=== PATIENT | female | born 1975 | race Caucasian/White ===

== ENCOUNTER 2019-10-26 08:49 | Outpatient (CLI) | payer OTHER, SELFPAY ==
--- NOTE | ~2019-10-26 | MM_ITS ---
EXAMINATION: MM screening kin BI w jessenia HISTORY: Screening mammogram TECHNIQUE: Craniocaudal and mediolateral oblique 3-D tomosynthesis images were obtained and synthetic 2-D images were generated. CAD analysis was submitted and interpreted. COMPARISON: Comparison to multiple prior studies sequentially, with oldest reviewed study dated 10/17. BREAST PARENCHYMAL COMPOSITION: There are scattered areas of fibroglandular density. FINDINGS: There is no evidence of suspicious mass, calcification, or architectural distortion to sugg est malignancy in either breast. There has been no suspicious interval change. IMPRESSION: 1. No mammographic evidence of malignancy. 2. Recommend routine screening mammography in one year. BI-RADS Category 1: Negative Reviewed, dictated and finalized at location A.
== END 2019-10-26 08:50 | disposition home or self-care (01) ==
LOC: ANHIMG 08:56
PROVIDERS: Visit Provider Obstetrics & Gynecology
DX: Z12.31 Encounter for screening mammogram for malignant neoplasm of breast (principal)
CPT/HCPCS: 77063; 77067

== ENCOUNTER 2020-10-27 09:14 | Outpatient (CLI) | payer OTHER, SELFPAY ==
--- NOTE | ~2020-10-27 | MM_ITS ---
EXAMINATION: MM screening kin BI w jessenia HISTORY: Screening TECHNIQUE: Craniocaudal and mediolateral oblique 3-D tomosynthesis images were obtained and synthetic 2-D images were generated. CAD analysis was submitted and interpreted. COMPARISON: Comparison to multiple prior studies sequentially, with oldest reviewed study dated 09/29. BREAST PARENCHYMAL COMPOSITION: There are scattered areas of fibroglandular density. FINDINGS: There is no evidence of suspicious mass, calcification, or architectural distortion to sugg est malignancy in either breast. There has been no suspicious interval change. IMPRESSION: 1. No mammographic evidence of malignancy. 2. Recommend routine screening mammography in one year. BI-RADS Category 1: Negative Reviewed, dictated and finalized at location A.
== END 2020-10-27 09:15 | disposition home or self-care (01) ==
LOC: ANHIMG 09:17
PROVIDERS: Visit Provider Obstetrics & Gynecology
DX: Z12.31 Encounter for screening mammogram for malignant neoplasm of breast (principal)
CPT/HCPCS: 77063; 77067

== ENCOUNTER 2021-01-16 09:03 | Outpatient (CLI) | payer OTHER, SELFPAY ==
--- NOTE | ~2021-01-16 | DEXA_ITS ---
Bone Density Report Name: Tiana Shi Age: 45 Sex: Female Ethnicity: White Date of : 1975 Indication: height loss; hysterectomy; Referring Provider: Emile Camarillo Study: Bone densitometry was performed. Exam Date: January 16, 2021 Accession number: [id number] Bone Density: Region BMD T-score Z-score Classification AP Spine (L3, L4) 1.286 1.7 2.3 Normal World Health Organization criteria for BMD impression classify patients as: Normal (T-score at or above -1.0), Osteopenia (T-score between -1.0 and -2.5), or Osteoporosis (T-score at or below -2.5). Previous Exams: Region Exam Age BMD T-score BMD Change BMD Change Date g/cm2 vs Baseline vs Previous AP Spine(L3, L4) 01/16/2021 45 1.286 1.7 0.023(1.8%) 0.023(1.8%) 10/17/2016 40 1.263 1.5 *Denotes significance at 95% confidence level, LSC for AP Spine = 0.022 g/cm2 Clinical Information Provided by Patient: Has used the following medications: Vitamin D, Calcium Has the following medical conditions: Hysterectomy Patient maximum height was 66 Onset of menses at age 9 Premenopausal Number of children 1 Impression: The patient's bone mass is within expected range for age, gender and ethnicity. No significant bone loss was observed. Discussion: BONE DENSITY IS WITHIN EXPECTED LIMITS FOR AGE, SEX AND RACE. Bone density is within expected limits for age, sex and race at all sites measured. The patient should follow a healthful lifestyle (good nutrition with adequate calcium and vitamin D, and appropriate weight-bearing exercise). Follow-Up: Consider repeating this study in 5 years or sooner if there is some new clinical indication. Reported by: BONNIE on 01/16/2021 9:21:00 AM. Reviewed, dictated and finalized at location ACosta ZELAYA
== END 2021-01-16 09:04 | disposition home or self-care (01) ==
LOC: ANHIMG 09:07
PROVIDERS: Visit Provider Obstetrics & Gynecology
DX: Z13.820 Encounter for screening for osteoporosis (principal)
CPT/HCPCS: 77080

== ENCOUNTER 2021-11-06 08:48 | Outpatient (CLI) | payer OTHER, SELFPAY ==
--- NOTE | ~2021-11-06 | MM_ITS ---
EXAMINATION: MM screening kin BI w jessenia HISTORY: Screening TECHNIQUE: Craniocaudal and mediolateral oblique 3-D tomosynthesis images were obtained and synthetic 2-D images were generated. CAD analysis was submitted and interpreted. COMPARISON: Comparison to multiple prior studies sequentially, with oldest reviewed study dated 09/29. BREAST PARENCHYMAL COMPOSITION: There are scattered areas of fibroglandular density. FINDINGS: There is no evidence of suspicious mass, calcification, or architectural distortion to sugg est malignancy in either breast. There has been no suspicious interval change. IMPRESSION: 1. No mammographic evidence of malignancy. 2. Recommend routine screening mammography in one year. BI-RADS Category 1: Negative Reviewed, dictated and finalized at location A.
== END 2021-11-06 08:49 | disposition home or self-care (01) ==
LOC: ANHIMG 08:54
PROVIDERS: Visit Provider Obstetrics & Gynecology
DX: Z12.31 Encounter for screening mammogram for malignant neoplasm of breast (principal)
CPT/HCPCS: 77063; 77067

== ENCOUNTER → 2022-04-12 15:34 | Outpatient (CLI) | payer OTHER, SELFPAY ==
--- NOTE | ~2022-04-12 | MR_ITS ---
EXAMINATION: MR brain/brain stem wo con DATE: 04/12/2022 16:11 INDICATION: Memory loss. TECHNIQUE: Magnetic resonance imaging (MRI) of the brain and brainstem was performed without intraven ous contrast. COMPARISON: None. FINDINGS: There are 2 punctate foci of increased T2-weighted signal intensity in the cerebral white m atter, which is normal for the patient's age. There is no intracranial hemorrhage, acute infarction, or abnormal intracranial mass lesion. The ventricles are normal in size. The paranasal sinuses are cl ear. The orbits are normal. There is a trace right mastoid effusion. IMPRESSION: 1. Normal brain. Reviewed, dictated and finalized at location A. INE SHOP APPRENTICE IMPRESSION: 1. Normal brain.
== END ==
DX: R41.3 Other amnesia (principal)
CPT/HCPCS: 70551

== ENCOUNTER 2022-10-11 09:00 | Outpatient (RCR) | payer OTHER, SELFPAY ==
--- NOTE | 2022-09-13 13:02 | PTOPEVAL1 ---
Assessment and note entered by Jennifer Mercado, PT Evaluation Information Assessment Status Evaluation Diagnosis chronic pain Subjective Information Patient referred to physical therapy due to chronic pain. Patient is very interested in aquatic therapy. Patient reports her back and neck are her main problems currently. Patient reports numbness in bilateral upper extremities. Patient reports neck pain is currently 3/10, back currently rated as 5/10, states that MD believes her pain may be autoimmune related or fibromyalgia . 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 Reported Pain Level Pain Score 3,5: Self Report Additional Pain Score Comments patient reports she is unable to make her pain go away with ice or heat Assessment PT Clinical Summary Patient is 46 year old female referred to physical therapy due to back and neck pain. Patient has chronic pain which moves around and limits her ability to perform chores at home and prolonged mobility in the community. Patient presents with decreased lumbar range of motion, decrease hip and core strength, and pain with all mobility. Patient is a good candidate for aquatic therapy in order to perform strengthening with buoyancy of pool to improve tolerance. Recommending skilled physical therapy 1-2x/wk for 4 weeks to reduce pain, improve endurance, and improve core/lower extremity strength in order to improve mobility in home and community Plan of Care Interventions Aquatic Therapy,Electrical Stimulation,Gait Training,Hot Pack/Cold Pack,Manual Therapy,Neuro Re-education,Patient/Caregiver Education,Therapeutic Activities,Therapeutic Exercise Other Interventions cupping, taping, iastm PT Services Indicated Yes Treatment Frequency and 1-2x/wk for 4 weeks Duration These treatments will address the objective and functional deficits as defined above. The patient will be advanced safely and appropriately in order for the patient to progress towards his/her prior level of function. Additional exercises will be introduced and as well as a comprehensive home exercise program upon discharge, if needed, ?to ensure carryover of functional gains achieved in the clinic. This treatment plan has been reviewed and agreement upon by the patient.
--- NOTE | 2022-10-11 09:44 | PTOPDC ---
Assessment and note entered by Jennifer Mercado, PT Evaluation Information Assessment Status Discharge Diagnosis chronic pain Subjective Information Patient states that following PT she will find a new body part hurting. For example when scapular strengthening occurs her neck, TMJ, or shoulder will begin hurting. Patient reports she feels stronger and will be going to an amusement park with her family Reported Pain Level Pain Score 4,5: Self Report Additional Pain Score Comments patient pain moves around frequently, currently complaining of R TMJ pain. Patient has mouth guard and has been using that as well as heat. Patient also complaining of R shoulder pain since performing scapular retraction. Patient will be seeing neurologist in November. Assessment PT Clinical Summary PT goals partially met at this time. Patient has progressed with lower extremity strength at this time, patient is independent with home exercises. Patients pain continues to flare up following therapy sessions and moves to different body parts . Currently patient is experiencing pain in neck, R shoulder, L TMJ, low back. Patient does experience relief in pain with heat and gentle range of motion to cervical spines. Patient is able to walk increased distances at this time. Patient agrees that she is ready for DC from PT due to pain changing locations frequently and being independent with home exercise program. Educated to notify MD if symptoms worsen and additional therapy is needed Plan of Care PT Services Indicated No
== END 2022-10-11 14:46 | disposition home or self-care (01) ==
LOC: ANHPT 09:00
PROVIDERS: Visit Provider Nurse Practitioner
DX: G89.4 Chronic pain syndrome (principal)
CPT/HCPCS: 97014; 97110; 97113; 97140; 97162; 97530; G0283

== ENCOUNTER 2022-11-09 13:57 | Outpatient (CLI) | payer OTHER, SELFPAY ==
--- NOTE | ~2022-11-09 | MM_ITS ---
EXAMINATION: MM screening kin BI w jessenia HISTORY: Screening mammogram TECHNIQUE: Craniocaudal and mediolateral oblique 3-D tomosynthesis images were obtained and synthetic 2-D images were generated. CAD analysis was submitted and interpreted. COMPARISON: 11/06/2021, 10/27/2020, 10/26/2019 bilateral screening mammogram examinations BREAST PARENCHYMAL COMPOSITION: The breasts are almost entirely fatty. FINDINGS: Stable circumscribed axillary tail and axillary lymph nodes since prior examination. There is no evidence of suspicious mass, calcification, or architectural distortion to suggest malignancy i n either breast. There has been no suspicious interval change. IMPRESSION: 1. No mammographic evidence of malignancy. 2. Recommend routine screening mammography in one year. BI-RADS Category 1: Negative Reviewed, dictated and finalized at location A.
== END 2022-11-09 13:58 | disposition home or self-care (01) ==
LOC: CHSIMG 14:00
PROVIDERS: Visit Provider Obstetrics & Gynecology
DX: Z12.31 Encounter for screening mammogram for malignant neoplasm of breast (principal)
CPT/HCPCS: 77063; 77067

== ENCOUNTER 2023-11-12 09:05 | Outpatient (CLI) | payer OTHER, SELFPAY ==
--- NOTE | ~2023-11-12 | MM_ITS ---
EXAMINATION: MM screening kin BI w jessenia HISTORY: Screening TECHNIQUE: Craniocaudal and mediolateral oblique 3-D tomosynthesis images were obtained and synthetic 2-D images were generated. CAD analysis was submitted and interpreted. COMPARISON: Comparison to multiple prior studies sequentially, with oldest reviewed study dated 10/25. BREAST PARENCHYMAL COMPOSITION: Not dense: There are scattered areas of fibroglandular density. FINDINGS: There is no evidence of suspicious mass, calcification, or architectural distortion to sugg est malignancy in either breast. There has been no suspicious interval change. IMPRESSION: 1. No mammographic evidence of malignancy. 2. Recommend routine screening mammography in one year. BI-RADS Category 1: Negative Reviewed, dictated and finalized at location B.
== END 2023-11-12 09:06 | disposition home or self-care (01) ==
LOC: ANHIMG 09:06
PROVIDERS: Visit Provider Obstetrics & Gynecology
DX: Z12.31 Encounter for screening mammogram for malignant neoplasm of breast (principal)
CPT/HCPCS: 77063; 77067

== ENCOUNTER 2024-05-25 14:53 | Outpatient (CLI) | payer OTHER, SELFPAY ==
--- NOTE | ~2024-05-25 | DEXA_ITS ---
Bone Density Report Name: EDGAR LARA Age: 48 Sex: Female Ethnicity: White Date of : 1975 Indication: postmenopausal; screening for osteoporosis; height loss; prior fracture; hysterectomy; Referring Provider: JEAN-CLAUDE LIEBERMAN Study: Bone densitometry was performed. Exam Date: May 25, 2024 Accession number: [id number] Bone Density: Region BMD T-score Z-score Classification AP Spine(L1-L4) 1.192 1.3 2.1 Normal World Health Organization criteria for BMD impression classify patients as: Normal (T-score at or above -1.0), Osteopenia (T-score between -1.0 and -2.5), or Osteoporosis (T-score at or below -2.5). Clinical Information Provided by Patient: Has had a low trauma fracture Has used the following medications: Vitamin D, Calcium Has the following medical conditions: Hysterectomy Patient maximum height was 66.0 Menopause Age: 41 No regular weight bearing exercise Drinks caffeinated beverages Onset of menses at age 9 Number of children 1 Impression: The patient has normal bone mass. The patient has risk factors, including: previous fracture. Discussion: LOW RISK OF FRACTURE; BONE DENSITY IS WELL ABOVE THE MINIMUM DESIRABLE LEVEL AND ABOVE AVERAGE FOR AGE AND SEX AT ALL SKELETAL SITES TESTED. This person's bone density is above expected limits for age and sex. This is rarely clinically significant, but should be pursued if there are significant musculoskeletal complaints. The patient should follow a healthful lifestyle (good nutrition with adequate calcium and vitamin D, and appropriate weight-bearing exercise). Follow-Up: Consider repeating this study in 5 years or sooner if there is some new clinical indication. Reported by: BONNIE on 05/25/2024 3:26:00 PM. Reviewed, dictated and finalized at location [facility]
--- OUTSIDE RECORDS SUMMARY | 2024-05-25 17:44 | XMS_ITS | Clinical Summary ---
Author Organization [facility] Address On license of [facility] [place] [address] Care Team Providers Care Photograph Developer Name Role Phone Unavailable Primary Care Provider Unavailabl e Social History Tobacco Use Types Packs/Day Years Used Date Smoking Tobacco: Never Assessed Comments Unknown Sex and Gender Information Value Date Recorded Sex Assigned at Not on file Legal Sex Female 7:26 PM CDT Gender Identity Not on file Sexual Orientation Not on file Plan of Treatment Health Maintenance Due Date Last Done Comments Cervical Cancer Screening Pa p Smear (Age 30 to 64) Every 3 Years 1973 Colorectal Cancer Screening Colonoscopy (10 Years) 1973 Annual Physical 1976 Hepatitis C 01/01/1992 DTaP, Tdap and Td Vaccines ( 1 - Tdap) 1992 Hepatitis B Vaccines (1 of 3 - 19+ 3-dose series) 1992 Cervical Cancer Screening Pa p with HPV Testing (Age 30 to 64) Every 5 Years 01/01/2004 Cervical Cancer Screening with HPV 01/01/2004 Mammogram Screening 2013 COVID-19 Vaccine (2023-2 5 season) 2023 Zoster Vaccines (1 of 2) 01/01/2024 Influenza Adult (#1) 2024 Meningococcal B Vaccine Aged Out No l onger eligible based on patient's age to complete this topic Meningococcal Vaccine Aged Out No matthew balaji eligible based on patient's age to complete this topic Pneumococcal Vaccine: Pediat rics (0 to 5 Years) and At-Risk Patients (6 to 64 Years) Aged Out No longer eligible b ased on patient's age to complete this topic RSV Immunizations Under 20 Months Aged Out No longer eligible based on patient's age to complete this topic
--- OUTSIDE RECORDS SUMMARY | 2024-05-25 17:44 | XMS_ITS | Referral Summary ---
Author Organization [facility] Address [address] [place] [address] Care Team Providers Care Park Interpreter Name Role Phone Clarissa Whiteside MD Unavailable Unavailable Source Comments [facility],non-owned Affiliates and Associated Physician Practices is amultiple site organization consisting of ambulatory clinics and hospital sitesin [place], [place], [place] and [place]. This disclosure is being madepursuant to the Care Everywhere program and may not contain all information available regarding this patient. Last updated 17.[facility] Allergies Active Allergy Reactions Criticality Noted Date Comments Diphenhydramine 08/08/2012 Povidone Iodine 08/08/2012 Contrast-Iodinated Agents Fo r Ct/Other 08/08/2012 Flu Virus Vaccine Other 06/12/2014 Flu symptoms Latex 08/08/2012 Penicillins 08/08/2012 Medications * Be aware that medications may not be up to date on this document. Alwaysverify current medications with the patient. Medication Sig Dispensed Refills Start Date End Date Status BIOTIN FORTE PO Take by mouth. Activ e CRANBERRY EXTRACT PO Take by mouth. Active Wlarhkwf-Mvq-Hp-FA ( VITAMIN WITH IRON) tablet Take 1 Tab by mouth once daily. 30 Tab 5 02/13/2014 Active metFORMIN (GLUCOPHAGE) 1000 MG tabletIndications:Infert ility, female TAKE 1 TABLET BY MOUTH TWICE DAILY WITH MORNING AND EVENING MEAL. 180 Tab 3 03/15/2014 Active vitamin D, cholecalciferol, 1000 UNITS tablet Take 1 Tab by mouth once daily. 06/12/2014 Active levothyroxine (SYNTHROID) 125 MCG tabletIndications:Unspec ified hypothyroidism Take 1 Tab by mouth once daily. 90 Tab 3 06/14/2014 Active Active Problems Problem Noted Date Diagnosed Date Hypothyroidism 08/08/2012 Overview (01/06/2015): Gastric bypass status for obesity 08/08/2012 JOLYNN (generalized anxiety disorder) 08/08/2012 Social History Tobacco Use Types Packs/Day Years Used Date Smoking Tobacco: Some Days Cigarettes Tobacco Cessation:Ready to Q uit: Yes; Counseling Given: Yes Alcohol Use Standard Drinks/Week Comments No 0 (1 standard drink = 0.6 oz pur e alcohol) Sex and Gender Information Value Date Recorded Sex Assigned at Not on file Gender Identity Not on file Sexual Orientation Not on file Last Filed Vital Signs Vital Sign Reading Time Taken Comments Blood Pressure 122/60 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 Author [facility] Lifestyle:Neto curry PCP visit Lifestyle No Susan Jordan MA Quit smoking / using tobacco Lifestyle Susan Story MA Procedures Procedure Name Priority Date/Time Associated Diagnosis Comments LIPID PROFILE W LDL/HDL RATIO Routine 10/07/2013 12:06 PM CDT Screening for unspecified condition from Last 3 Months or Most Recently Relevant to Health Maintenance Results * (ABNORMAL) LIPID PROFILE W LDL/HDL (PO REF LAB) (10/07/2013 12:06 PM CDT) Cholesterol 195 100 - 199 mg/dL [facility] ACCOUNT BILL Triglycerides 87 0 - 149 mg/dL [facility] ACCOUNT BILL HDL Cholesterol 55 >39 mg/dL [facility] ACCOUNT BILL Comment: According to ATP-III Guidelines, HDL-C >59 mg/dL is considered a negative risk factor for CHD. VLDL Calculated 17 5 - 40 mg/dL [facility] ACCOUNT BILL LDL Calculated 123(H) 0 - 99 mg/dL [facility] ACCOUNT BILL Comment NOT NEEDED [facility] ACCOUNT BILL Comment:Ancillary determined the test is not needed LDL/HDL Ratio 2.2 0.0 - 3.2 ratio units [facility] ACCOUNT BILL Blood specimen (specimen) BLOOD SPECIMEN / Unknown 10/07/2013 12:06 PM CDT 10/07/2013 4:43 PM CDT Narrative Resulting Agency Comment [facility] [address] [id number] Jules Frazier MD LAB - CHEMISTRY O RDERABLES [facility] ACCOUNT BILL from Last 3 Months or Most Recently Relevant to Health Maintenance Care Teams Park Interpreter Relationship Specialty Start Date End Date Clarissa Whiteside MD Obstetrics and Gynecology 02/13/14
--- OUTSIDE RECORDS SUMMARY | 2024-05-25 17:44 | XMS_ITS | Clinical Summary ---
Author Organization [facility] Address [address] [place] [address] Care Team Providers Care Mission Coordinator Name Role Phone Clarissa Whiteside MD Unavailable Unavailable Source Comments [facility],non-owned Affiliates and Associated Physician Practices is amultiple site organization consisting of ambulatory clinics and hospital sitesin [place], [place] and [place]. This disclosure is being madepursuant to the Care Everywhere program and may not contain all information available regarding this patient. Last updated 17.[facility] Allergies Active Allergy Reactions Criticality Noted Date [...] CRANBERRY EXTRACT PO Take by mouth. 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 Pulse 82 10/07/2013 11:23 AM CDT Temperature - - Respiratory Rate - - Oxygen Saturation 99% 10/07/2013 11:23 AM CDT Inhaled Oxygen Concentration - - Weight 94.8 kg (209 lb) 06/12/2014 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 COMPLIANCE DIRECTOR Height 167.6 cm (5' 6 ) 06/12/2014 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 COMPLIANCE DIRECTOR Body Mass Index 33.73 06/12/2014 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 COMPLIANCE DIRECTOR Plan of Treatment Health Maintenance Due Date Last Done Comments COLOGUARD (AGES 45-75) - COL ON CA SCREENING 1973 COLON MONITORING 1973 COLONOSCOPY - COLON CA SCREENING 1973 CT COLONOGRAPHY - COLON CA SCREENING 1973 Colorectal Cancer Screening 1973 FIT - COLON CA SCREENING 1973 FLEX SIG - COLON CA SCREENING 1973 MAMMOGRAM 1973 HIV SCREENING 1988 HEPATITIS C SCREENING 12/27/1991 DTAP/TDAP/TD VACCINES (1 - Tdap) 1992 HEPATITIS B VACCINE (1 of 3 - 19+ 3-dose series) 1992 PNEUMOCOCCAL VACCINE 50+ (1 of 2 - PCV) 1992 PNEUMOCOCCAL VACCINE (1 of 2 - PCV) 1992 PAP SMEAR 04/06/2016 04/06/2013 (Previously completed) LIPID TESTING 10/07/2018 10/07/2013, 08/29/2012 COVID-19 VACCINE (1 - 2024-2 5 season) 2023 ZOSTER VACCINE (1 of 2) 01/01/2024 DEPRESSION SCREENING 04/08/2024 HIB VACCINE Aged Out No longer eligi ble based on patient's age to complete this topic HPV VACCINE Aged Out No longer eligi ble based on patient's age to complete this topic MENINGOCOCCAL (Group B) VACCINE Aged Out No longer eligible b ased on patient's age to complete this topic MENINGOCOCCAL VACCINE Aged Out No matthew balaji eligible based on patient's age to complete this topic Goals Goal Patient Goal Type Associated Problems Recent Progress Patient-Stated? Author [facility] Lifestyle:Neto curry PCP visit Lifestyle No Jose onSusan MA Quit smoking / using tobacco Lifestyle No Girish-Jackhan on, STEPHNE Davis Procedures Procedure Name Priority Date/Time Associated Diagnosis [...] PM CDT Narrative Resulting Agency Comment [facility] [address] [id number] Jules Frazier MD LAB - CHEMISTRY O RDERABLES [facility] ACCOUNT BILL from Last 3 Months or Most Recently Relevant to Health Maintenance Care Teams Mission Coordinator Relationship Specialty Start Date End Date Clarissa Whiteside MD Obstetrics and Gynecology 02/13/14
--- OUTSIDE RECORDS SUMMARY | 2024-05-25 17:44 | XMS_ITS | Clinical Summary ---
Author Organization [facility] Address [address] [place] [phone] Phone Care Team Providers Care Industrial Management Teacher Name Role Phone Jules Frazier MD Primary Care Provider Social History Tobacco Use Types Packs/Day Years Used Date Smoking Tobacco: Never Assessed Comments Unknown Sex and Gender Information Value Date Recorded Sex Assigned at Not on file Legal Sex Female 1:31 PM CDT Gender Identity Not on file Sexual Orientation Not on file Plan of Treatment Health Maintenance Due Date Last Done Comments DTAP/TDAP/TD VACCINES (1 - Tdap) 1992 HEPATITIS B VACCINES (1 of 3 - 19+ 3-dose series) 12/08 CERVICAL CANCER SCREENING 01/01/2004 BREAST CANCER SCREENING 2013 COLORECTAL SCREENING 2018 Colorectal Cancer Screening 2018 FIT-DNA Q 3 years 2018 FIT/FOBT Q 1 year 2018 Flex Sig/CT Colonography Q 5 years 2018 INFLUENZA VACCINE (#1) 2023 ZOSTER VACCINE (1 of 2) 01/01/2024 Insurance [facility] [id number] Care Teams Industrial Management Teacher Relationship Specialty Start Date End Date Jules Frazier MD PCP - General Internal Medicine 10/13/13
--- OUTSIDE RECORDS SUMMARY | 2024-05-25 17:44 | XMS_ITS | Clinical Summary ---
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 Gender Identity Not on file Sexual Orientation Not on file Plan of Treatment Health Maintenance Due Date Last Done Comments Hepatitis C Virus (HCV) Screening 1973 Hepatitis B Immunization (1 of 3 - 19+ 3-dose series) 1992 Pap Smear 1994 Cervical Cancer Screening (CCS) 01/01/2004 HPV/Cotest 01/01/2004 Colonoscopy 2018 Colorectal Cancer Screening 2018 Influenza Immunization (#1) 2023 SARS-COV-2 Immunization ( - season) 2023 04/17/2021, 09/19/2020 Cologuard 01/01/2024 Immunochemical Fecal Occult Blood 01/01/2024 Mammogram 01/01/2024 Pneumococcal Immunization (5 0+ years) (1 of 1 - PCV) 01/01/2024 Zoster Immunization (1 of 2) 01/01/2024 Respiratory Syncytial Virus (RSV) Immunization (Adult) (1 - 1-dose 75+ series) 2048 DTaP/Tdap/Td Immunization Discontinued 01/17/2015 TdaP Immunization Completed 01/17/2015 Meningococcal Immunization (ACWY) Aged Out No longer eligible based on patient's age to complete this topic Pneumococcal Immunization Combined Aged Out No longer eligible based on patient's age to complete this topic Rotavirus Immunization Aged Out No lo nger eligible based on patient's age to complete this topic
--- OUTSIDE RECORDS SUMMARY | 2024-05-25 17:44 | XMS_ITS | Patient Health Summary ---
Author Organization [facility] Address [address] [place] [address] Care Team Providers Care Facing Baster Jumpbasting Name Role Phone Clarissa Whiteside MD Unavailable Unavailable Note from [facility] [place],non-owned Affiliates and Associated Physician Practices is amultiple site organization consisting of ambulatory clinics and hospital sitesin [place], [place], [place] and [place]. This disclosure is being madepursuant to the Care Everywhere program and may not contain all information available regarding this patient. Last updated 17.[facility] Allergies * Diphenhydramine * Povidone Iodine * Contrast-Iodinated Agents For Ct/Other * Flu Virus Vaccine(Other) * Latex * Penicillins Medications * Be aware that medications may not be up to date on this document. Alwaysverify current medications with the patient. * BIOTIN FORTE PO Take by mouth. * CRANBERRY EXTRACT PO Take by mouth. * Wyeirele-Vxg-Yx-FA ( VITAMIN WITH IRON) tablet(Started 02/13/2014) Take 1 Tab by mouth once daily. 5 refills left * metFORMIN (GLUCOPHAGE) 1000 MG tablet(Started 03/15/2014) TAKE 1 TABLET BY MOUTH TWICE DAILY WITH MORNING AND EVENING MEAL. 3 refills left * vitamin D, cholecalciferol, 1000 UNITS tablet(Started 06/12/2014) Take 1 Tab by mouth once daily. * levothyroxine (SYNTHROID) 125 MCG tablet(Started 06/14/2014) Take 1 Tab by mouth once daily. 3 refills left Active Problems Problem Noted Date Diagnosed Date Hypothyroidism 08/08/2012 Gastric bypass status for obesity 08/08/2012 JOLYNN [...] Comments Blood Pressure 122/60 06/12/2014 9:36 AM SYSTEMS ADMINISTRATION ANALYST Pulse 82 10/07/2013 11:23 AM CDT Temperature - - Respiratory Rate - - Oxygen Saturation 99% 10/07/2013 11:23 AM CDT Inhaled Oxygen Concentration - - Weight 94.8 kg (209 lb) 06/12/2014 9:36 AM SYSTEMS ADMINISTRATION ANALYST Height 167.6 cm (5' 6 ) 06/12/2014 9:36 AM SYSTEMS ADMINISTRATION ANALYST Body Mass Index 33.73 06/12/2014 9:36 AM SYSTEMS ADMINISTRATION ANALYST Procedures * THYROID PANEL W TSH (TSH,T4,T3 UPTAKE,FTI)(Performed 06/12/2014) Performed for Unspecified hypothyroidism * THYROID PANEL W TSH (TSH,T4,T3 UPTAKE,FTI)(Performed 02/13/2014) Performed for Unspecified hypothyroidism * VITAMIN D 25-HYDROXY(Performed 10/07/2013) Performed for Screening for unspecified condition * ESTRADIOL(Performed 10/07/2013) Performed for Infertility, female * FSH + LH PANEL(Performed 10/07/2013) Performed for Infertility, female * VITAMIN B12(Performed 10/07/2013) Performed for Screening for unspecified condition * LIPID PROFILE W LDL/HDL RATIO(Performed 10/07/2013) Performed for Screening for unspecified condition * THYROID PANEL W TSH (TSH,T4,T3 UPTAKE,FTI)(Performed 10/07/2013) Performed for Unspecified hypothyroidism, Infertility, female * COMPREHENSIVE METABOLIC PANEL(Performed 10/07/2013) Performed for Infertility, female * CBC W AUTO DIFFERENTIAL(Performed 10/07/2013) Performed for Infertility, female * URINALYSIS NO MICROSCOPIC NO CULTURE(Performed 03/26/2013) * CULTURE URINE(Performed 03/26/2013) Performed for Low back pain * URINALYSIS NO MICROSCOPIC NO CULTURE(Performed 08/29/2012) Performed for Annual physical exam * VITAMIN B12(Performed 08/29/2012) Performed for Gastric bypass status for obesity * VITAMIN D 25-HYDROXY(Performed 08/29/2012) Performed for Gastric bypass status for obesity * LIPID PROFILE(Performed 08/29/2012) Performed for Annual physical exam * THYROID PANEL W TSH (TSH,T4,T3 UPTAKE,FTI)(Performed 08/29/2012) Performed for Unspecified Hypothyroidism * COMPREHENSIVE METABOLIC PANEL(Performed 08/29/2012) Performed for Annual physical exam * CBC W AUTO DIFFERENTIAL(Performed 08/29/2012) Performed for Annual physical exam Results * (ABNORMAL) THYROID PANEL W TSH (06/12/2014 10:31 AM SYSTEMS ADMINISTRATION ANALYST) Only the most recent of4 resultswithin the time period is included. TSH 0.995 0.450 - 4.500 uIU/mL [facility] ACCOUNT BILL T4 Total 14.2(H) 4.5 - 12.0 ug/dL [facility] ACCOUNT BILL T3 Uptake 21(L) 24 - 39 % [facility] ACCOUNT BILL Free Thyroxine Index 3.0 1.2 - 4.9 [facility] ACCOUNT BILL Blood specimen (specimen) BLOOD SPECIMEN / Unknown 06/12/2014 10:31 AM SYSTEMS ADMINISTRATION ANALYST 06/12/2014 12:38 PM SYSTEMS ADMINISTRATION ANALYST Narrative Resulting Agency Comment [facility] [address] [phone] Jules Frazier MD LAB - CHEMISTRY O RDERABLES [facility] ACCOUNT BILL * (ABNORMAL) LIPID PROFILE W LDL/HDL (PO [...] 4:43 PM CDT Narrative Resulting Agency [facility] [address] [facility] [phone] Jules Frazier MD LAB - CHEMISTRY O RDKENJI Performing Organization Address City/[facility] Co de Phone Number [facility] ACCOUNT BILL * ESTRADIOL (10/07/2013 12:06 PM CDT) Estradiol 32.5 pg/mL [facility] ACCOUNT BILL Comment: Adult Female: Follicular phase 12.5 - 166.0 Ovulation phase 85.8 - 498.0 Luteal phase 43.8 - 211.0 Postmenopausal <6.0 - 54.7 1st trimester 215.0 - >4300.0 Girls (1-10 years) 6.0 - 27.0 Jodie ECLIA methodology Blood specimen (specimen) BLOOD SPECIMEN / Unknown 10/07/2013 12:06 PM CDT 10/07/2013 4:43 PM CDT Narrative Resulting Agency Comment [facility] [address] [facility] [phone] Jules Frazier MD LAB - CHEMISTRY O RDERABLES Performing Organization Address [facility] de Phone Number [facility] ACCOUNT BILL * VITAMIN D 25-HYDROXY (10/07/2013 12:06 PM CDT) Only the most recent of2 resultswithin the time period is included. Vitamin D, 25 Hydroxy 37.2 30.0 - 100.0 ng/mL [facility] ACCOUNT BILL Comment: Vitamin D deficiency has been defined by the [place] of Medicine and an Endocrine Society practice guideline as a level of serum 25-OH vitamin D less than 20 ng/mL (1,2). The Endocrine Society went on to further define vitamin D insufficiency as a level between 21 and 29 ng/mL (2). 1. IOM ([place] of Medicine). 2010. Dietary reference intakes for calcium and D. [place]: The National Academies Press. 2. Ruby MF, Irving MOLINA, Roderick UNDERWOOD, et al. Evaluation, treatment, and prevention of vitamin D deficiency: an Endocrine Society clinical practice guideline. JCEM. 2010; 96():1911-30. Blood specimen (specimen) BLOOD SPECIMEN / Unknown 10/07/2013 12:06 PM CDT 10/07/2013 4:43 PM CDT Narrative Resulting Agency Comment [facility] [address] [phone] Jules Frazier MD LAB - CHEMISTRY O RDERABLES [facility] ACCOUNT BILL * (ABNORMAL) CBC W AUTO DIFFERENTIAL (10/07/2013 12:06 PM CDT) Only the most recent of2 resultswithin the time period is included. WBC 7.2 3.4 - 10.8 x10E3/uL [facility] ACCOUNT BILL RBC 4.79 3.77 - 5.28 x10E6/uL [facility] ACCOUNT BILL Hemoglobin 10.8(L) 11.1 - 15.9 g/dL [facility] ACCOUNT BILL Hematocrit 35.2 34.0 - 46.6 % [facility] ACCOUNT BILL MCV 74(L) 79 - 97 fL [facility] ACCOUNT BILL MCH 22.5(L) 26.6 - 33.0 pg [facility] ACCOUNT BILL MCHC 30.7(L) 31.5 - 35.7 g/dL [facility] ACCOUNT BILL RDW 17.4(H) 12.3 - 15.4 % [facility] ACCOUNT BILL Platelet Count 438(H) 150 - 379 x10E3/uL [facility] ACCOUNT BILL Granulocytes % 35(L) 40 - 74 % [facility] ACCOUNT BILL Lymphocytes % 55(H) 14 - 46 % [facility] ACCOUNT BILL Monocytes % 5 4 - 12 % [facility] ACCOUNT BILL Eosinophils % 4 0 - 5 % [facility] ACCOUNT BILL Basophils % 1 0 - 3 % [facility] ACCOUNT BILL Immature Cells NOT NEEDED [facility] ACCOUNT BILL Comment:Ancillary determined the test is not needed Granulocytes Absolute 2.5 1.4 - 7.0 x10E3/uL [facility] ACCOUNT BILL Lymphocytes Absolute 4.0(H) 0.7 - 3.1 x10E3/uL [facility] ACCOUNT BILL Monocytes Absolute 0.4 0.1 - 0.9 x10E3/uL [facility] ACCOUNT BILL Eosinophils Absolute 0.3 0.0 - 0.4 x10E3/uL [facility] ACCOUNT BILL Basophils Absolute 0.1 0.0 - 0.2 x10E3/uL [facility] ACCOUNT BILL Immature Granulocytes 0 0 - 2 % [facility] ACCOUNT BILL Immature Granulocytes Absolute 0.0 0.0 - 0.1 x10E3/uL [facility] ACCOUNT BILL nRBC NOT NEEDED [facility] ACCOUNT BILL Comment:Ancillary determined the test is not needed Comment Hematology NOT NEEDED [facility] ACCOUNT BILL Comment:Ancillary determined the test is not needed Blood specimen (specimen) BLOOD SPECIMEN / Unknown 10/07/2013 12:06 PM CDT 10/07/2013 4:43 PM CDT Narrative Resulting Agency Comment [facility] [address] [phone] Jules Frazier MD LAB - HEMATOLOGY ORDERABLES [facility] ACCOUNT BILL * (ABNORMAL) COMPREHENSIVE METABOLIC PANEL (10/07/2013 12:06 PM CDT) Only the most recent of2 resultswithin the time period is included. Glucose 84 65 - 99 mg/dL [facility] ACCOUNT BILL BUN 8 6 - 20 mg/dL [facility] ACCOUNT BILL Creatinine 0.44(L) 0.57 - 1.00 mg/dL [facility] ACCOUNT BILL eGFR by MDRD 128 >59 mL/min/1.7 3 [facility] ACCOUNT BILL eGFR by MDRD 147 >59 mL/min/1.7 3 [facility] ACCOUNT BILL BUN/Creatinine Ratio 18 8 - 20 [facility] ACCOUNT BILL Sodium 138 134 - 144 mmol/L [facility] ACCOUNT BILL Potassium 4.3 3.5 - 5.2 mmol/L [facility] ACCOUNT BILL Chloride 100 97 - 108 mmol/L [facility] ACCOUNT BILL CO2 22 18 - 29 mmol/L [facility] ACCOUNT BILL Calcium 9.6 8.7 - 10.2 mg/dL [facility] ACCOUNT BILL Protein Total 6.4 6.0 - 8.5 g/dL [facility] ACCOUNT BILL Albumin 4.1 3.5 - 5.5 g/dL [facility] ACCOUNT BILL Globulin Total 2.3 1.5 - 4.5 g/dL [facility] ACCOUNT BILL Albumin/Globulin Ratio 1.8 1.1 - 2.5 [facility] ACCOUNT BILL Bilirubin Total 0.2 0.0 - 1.2 mg/dL [facility] ACCOUNT BILL Alkaline Phosphatase 54 39 - 117 IU/L [facility] ACCOUNT BILL AST 15 0 - 40 IU/L [facility] ACCOUNT BILL ALT 16 0 - 32 IU/L [facility] ACCOUNT BILL Blood specimen (specimen) BLOOD SPECIMEN / Unknown 10/07/2013 12:06 PM CDT 10/07/2013 4:43 PM CDT Narrative Resulting Agency Comment [facility] [address] [facility] [phone] Jules Frazier MD LAB - CHEMISTRY O RDERABLES Performing Organization Address [facility] de Phone Number [facility] ACCOUNT BILL * FSH + LH PANEL (10/07/2013 12:06 PM CDT) LH 6.3 mIU/mL [facility] ACCOUNT BILL Comment: Follicular phase 2.4 - 12.6 Ovulation phase 14.0 - 95.6 Luteal phase 1.0 - 11.4 Postmenopausal 7.7 - 58.5 FSH 8.8 mIU/mL [facility] ACCOUNT BILL Comment: Follicular phase 3.5 - 12.5 Ovulation phase 4.7 - 21.5 Luteal phase 1.7 - 7.7 Postmenopausal 25.8 - 134.8 Blood specimen (specimen) BLOOD SPECIMEN / Unknown 10/07/2013 12:06 PM CDT 10/07/2013 4:43 PM CDT Narrative Resulting Agency Comment [facility] [address] [facility] [phone] Jules Frazier MD LAB - CHEMISTRY O RDERABLES [facility] ACCOUNT BILL * VITAMIN B12 (10/07/2013 12:06 PM CDT) Only the most recent of2 resultswithin the time period is included. Vitamin B12 635 211 - 946 pg/mL [facility] ACCOUNT BILL Blood specimen (specimen) BLOOD SPECIMEN / Unknown 10/07/2013 12:06 PM CDT 10/07/2013 4:43 PM CDT Narrative Resulting Agency Comment [facility] [address] [place] [id number] Jules Frazier MD LAB - CHEMISTRY O RDERABLES Performing Organization Address City/[facility]/ZIP Co de Phone Number [facility] ACCOUNT BILL * URINALYSIS DIPSTICK AUTO (03/26/2013 4:32 PM SYSTEMS ADMINISTRATION ANALYST) Only the most recent of2 resultswithin the time period is included. Specific [place] UA 1.006 1.005 - 1.030 [facility] INSURANCE BILL pH UA 6.5 5.0 - 7.5 [facility] INSURANCE BILL Color UA Yellow Yellow [facility] INSURANCE BILL Appearance Clear Clear [facility] INSURANCE BILL Leukocyte UA Negative Negative [facility] INSURANCE BILL Protein UA Negative Negative/Tra ce [facility] INSURANCE BILL Glucose UA Negative Negative [facility] INSURANCE BILL Glucose Reflex NOT NEEDED [facility] INSURANCE BILL Comment:Ancillary determined the test is not needed Ketone UA Negative Negative [facility] INSURANCE BILL Occult Blood Urine Negative Negative [facility] INSURANCE BILL Bilirubin UA Negative Negative [facility] INSURANCE BILL Urobilinogen 0.2 0.0 - 1.9 mg/dL [facility] INSURANCE BILL Nitrite UA Negative Negative [facility] INSURANCE BILL Microscopic Examination Urine [facility] INSURANCE BILL Comment:Microscopic follows if indicated. 03/26/2013 4:32 PM SYSTEMS ADMINISTRATION ANALYST 03/26/2013 6:21 PM SYSTEMS ADMINISTRATION ANALYST Narrative [facility] INSURANCE BILL - 03/30/2013 10:24 AM SYSTEMS ADMINISTRATION ANALYST A duplicate report has been generated due to demographic updates. Resulting Agency Comment [facility] [address] [facility] [phone] Jules Frazier MD LAB - URINALYSIS ORDERABLES Performing Organization Address City/[facility]/ZIP Co de Phone Number [facility] INSURANCE BILL * CULTURE URINE (03/26/2013 4:32 PM SYSTEMS ADMINISTRATION ANALYST) Urine Culture Routine Final report [facility] INSURANCE BILL Result 1 No growth [facility] INSURANCE BILL Urine specimen (specimen) URINE SPECIMEN FROM URINARY BLADDER / Unknown 03/26/2013 4:32 PM SYSTEMS ADMINISTRATION ANALYST 03/26/2013 6:21 PM SYSTEMS ADMINISTRATION ANALYST Narrative [facility] INSURANCE BILL - 03/30/2013 10:24 AM SYSTEMS ADMINISTRATION ANALYST A duplicate report has been generated due to demographic updates. Resulting Agency Comment [facility] [place] [id number] [facility] [phone] Jules Frazier MD LAB - MICROBIOLOG Y ORDERABLES Performing Organization Address [facility] Co de Phone Number [facility] INSURANCE BILL * (ABNORMAL) LIPID PROFILE (08/29/2012 12:26 PM CDT) Cholesterol 178 100 - 199 mg/dL [facility] ACCOUNT BILL Triglycerides 70 0 - 149 mg/dL [facility] ACCOUNT BILL HDL Cholesterol 64 >39 mg/dL [facility] ACCOUNT BILL Comment: According to ATP-III Guidelines, HDL-C >59 mg/dL is considered a negative risk factor for CHD. VLDL Calculated 14 5 - 40 mg/dL [facility] ACCOUNT BILL LDL Calculated 100(H) 0 - 99 mg/dL [facility] ACCOUNT BILL Comment NOT NEEDED [facility] ACCOUNT BILL Comment:Ancillary determined the test is not needed Blood specimen (specimen) BLOOD SPECIMEN / Unknown 08/29/2012 12:26 PM CDT 08/29/2012 6:07 PM CDT Narrative Resulting Agency Comment [facility] [address] [facility] [phone] Jules Frazier MD LAB - CHEMISTRY O RDERABLES Performing Organization Address City/[facility]/ZIP Co de Phone Number [facility] ACCOUNT BILL Care Teams Facing Baster Jumpbasting Relationship Specialty Start Date End Date Clarissa Whiteside MD Obstetrics and Gynecology 02/13/14
== END 2024-05-25 14:54 | disposition home or self-care (01) ==
PROVIDERS: Visit Provider Obstetrics & Gynecology
DX: Z13.820 Encounter for screening for osteoporosis (principal); Z96.643 Presence of artificial hip joint, bilateral
CPT/HCPCS: 77080

== ENCOUNTER 2025-02-15 09:02 | Outpatient (CLI) | payer OTHER, SELFPAY ==
--- NOTE | ~2025-02-15 | MM_ITS ---
EXAMINATION: MM screening [facility] BI w jessenia HISTORY: Screening TECHNIQUE: Craniocaudal and mediolateral oblique 3-D tomosynthesis images were obtained and synthetic 2-D images were generated. CAD analysis was submitted and interpreted. COMPARISON: Comparison to multiple prior studies sequentially, with oldest reviewed study dated 11/06/2021. BREAST PARENCHYMAL COMPOSITION: Not dense: There are scattered areas of fibroglandular density. FINDINGS: There is no evidence of suspicious mass, calcification, or architectural distortion to suggest malignancy in either breast. There has been no suspicious interval change. IMPRESSION: 1. No mammographic evidence of malignancy. 2. Recommend routine screening mammography in one year. BI-RADS Category 1: Negative Reviewed, dictated and finalized at location [facility]
== END 2025-02-15 09:03 | disposition home or self-care (01) ==
LOC: MICIMG 09:03
PROVIDERS: PCP Internal Medicine; Visit Provider Obstetrics & Gynecology
DX: Z12.31 Encounter for screening mammogram for malignant neoplasm of breast (principal)
CPT/HCPCS: 77063; 77067